=== PATIENT | male | born 1980 | race Two or more races ===

== ENCOUNTER 2019-08-01 15:23 | Emergency (ER) | payer MEDICAID ==
[~2019-08-01] VITALS: Ht 172.7 cm; Wt 113.0 kg
[2019-08-01] MEDS ORDERED: IBUPROFEN 800MG TABLET PO ONE (17:00)
[2019-08-01] MEDS ORDERED: ONDANSETRON 4MG ODT PO ONE (17:00)
[2019-08-01 17:19] VITALS: BP 157/84
== END 2019-08-01 18:06 | disposition home or self-care (01) ==
LOC: ER 15:23
DX: J02.9 Acute pharyngitis, unspecified (principal); F12.10 Cannabis abuse, uncomplicated; Z85.9 Personal history of malignant neoplasm, unspecified; Z87.828 Personal history of other (healed) physical injury and trauma; Z98.890 Other specified postprocedural states
CPT/HCPCS: 87070; 87430; 99283; Q0162